=== PATIENT | female | born 1965 | race Caucasian/White ===

== ENCOUNTER 2023-10-15 14:37 | Inpatient (IN) | payer BC, SELFPAY ==
[2023-10-15 11:05] VITALS: BP 170/90
[2023-10-15 11:25] VITALS: BMI 30.5
[2023-10-15] MEDS: TORADOL 30 MG IV ×2 (11:47→17:30)
[2023-10-15] MEDS: TYLENOL 650 MG PO (11:47)
[2023-10-15 11:49] LABS: % Basophils 0.1 % (0-2); % Immature Granulocytes 0.2 % (0-0.5); % Lymphocytes 8.3 % (20.5-51.1); % Neutrophils 77.4 % (42.2-75.2); Absolute Eosinophils 0.4 10^3/uL (0-0.7); Absolute Lymphocytes 0.7 10^3/uL (1.2-3.4); Absolute Monocytes 0.7 10^3/uL (0.1-0.6); Absolute Neutrophils 6.2 10^3/uL (1.4-6.5); Hematocrit 37.7 % (37.0-47.0); Mean Corp Hgb Conc. 37.1 g/dL (33.0-37.0); Mean Corpuscular Hgb 30.4 pg (27.0-31.0); Mean Corpuscular Volume 81.8 fL (81.0-99.0); Mean Platelet Volume 9.2 fL (7.4-10.4); Nucleated Red Blood Cells % 0 %; Platelet Count 176 10^3/uL (130-400); Red Blood Cell Count 4.61 10^6/uL (4.20-5.40); Red Cell Dist. Width 12.5 % (11.5-14.5)
[2023-10-15 12:09] LABS: ALT (SGPT) 27 U/L (0-35); AST (SGOT) 28 U/L (14-36); Albumin 4.7 g/dl (3.5-5.0); Alkaline Phosphatase 62 U/L (38-126); Blood Urea Nitrogen 14 mg/dl (7-17); Carbon Dioxide 27 mmol/L (22-30); Chloride 100 mmol/L (98-107); Estimated Creatinine Clearance 79 ml/min; Glucose 136 mg/dl (70-99); Potassium 4.2 mmol/L (3.5-5.1); Sodium 140 mmol/L (135-145); Total Bilirubin 0.6 mg/dl (0.2-1.3); Total Protein 7.1 g/dl (6.3-8.2); eGFR > 60.00
--- NOTE | 2023-10-15 12:18 | ED.GENMED ---
History of Present Illness
General
Chief Complaint: Skin Problem
Source: patient and spouse
Exam Limitations: none
Time Seen by Provider: 10/15/23 11:20
Nursing documentation reviewed up to this point in time: agreed with
History of Present Illness
History of Present Illness:
58-year-old female diabetic, presents with right elbow pain and swelling, onset a few days ago seen at outside hospital placed on Bactrim and Keflex symptoms have worsened chest pain swelling redness streaking up and down her right arm, also some
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
and pain in her arm
Past History
Past History
ED Past Medical History: NIDDM and Other (Erb palsy)
ED Past Surgical History: Orthopedic
Social History
Tobacco: Non-smoker
Alcohol: None
Drug: None
Personal:
Living: with family
Review of Systems
Review of Systems
Constitutional: Reports fatigue; Denies weight loss
EENT: Reports no symptoms
Respiratory: Reports no symptoms
Cardiac: Reports no symptoms
ABD/GI: Reports no symptoms
Musculoskeletal: Reports joint pain, joint swelling and edema
Neurological: Reports no symptoms
Psychiatric: Reports no symptoms
Phy Exam
Physical Exam
Physical Exam:
Physical Exam
General: no apparent distress, not acutely ill
Neck: No jaundice
Heart: s1/s2 regular rate and rhythm, no murmur. equal radial pulses.
Lungs: no acute respiratory distress. clear bilaterally
Neuro: alert and oriented. no focal neurological deficits
Skin: Few macules over the anterior masterson
Psychiatric: well kept. interactive and cooperative
Extremities: Right upper extremity redness and warmth olecranon bursa with a small pustule decree sensation chronic finding over the right mid forearm strong radial
Course
Orders/Labs/Results
Orders:
Orders
10/15/23 11:32
Elbow, 3 View, Right [CR Elbow - Right Min 3 Views] Urgent
Comment:
Reason For Exam: RIGHT ELBOW PAIN.SWELLING
10/15/23 11:33
Acetaminophen [Tylenol] 650 mg PO NOW STA
Ketorolac [Toradol] 30 mg IV NOW STA
10/15/23 11:36
CRP [C-Reactive Protein] Urgent
Complete Blood Count/With Diff Urgent
Comprehensive Metabolic Panel Urgent
ESR [Erythrocyte Sed Rate] Urgent
Blood Culture Urgent
ANGELIKA Source: Blood/Venous
Specimen Description:
Abnormal Lab Results
10/15/23
11:36
MCHC 37.1 H g/dL
(33.0-37.0)
Absolute Lymphs (auto) 0.7 L 10^3/uL
(1.2-3.4)
Absolute Monos (auto) 0.7 H 10^3/uL
(0.1-0.6)
Neutrophils % 77.4 H %
(42.2-75.2)
Lymphocytes % 8.3 L %
(20.5-51.1)
Glucose 136 H mg/dl
(70-99)
C-Reactive Protein 26.10 H mg/L
(0.0-10.00)
10/15/23 11:36
10/15/23 11:36
Vital Signs
Initial and Last Documented VS:
Initial Vital Signs
Temp Pulse Resp BP Pulse Ox
99.0 F 104 16 170/90 98
10/15/23 11:05 10/15/23 11:05 10/15/23 11:05 10/15/23 11:05 10/15/23 11:05
Last Documented Vital Signs
Temp Pulse Resp BP Pulse Ox
99.0 F 104 16 170/90 98
10/15/23 11:05 10/15/23 11:05 10/15/23 11:05 10/15/23 11:05 10/15/23 11:05
MDM/Problems Addressed
Differential Diagnosis Includes:
Cellulitis abscess olecranon bursitis septic olecranon bursitis call trauma occult foreign body
MDM/Problems Addressed:
Right elbow swelling
Chronic conditions affecting care: DM
Acute Exacerbation and/or Progression of Chronic Illness:
erb
Acute Exacerbation and/or Progression of Chronic Illness: DM
*Critical Care Note
Total Time (30-74mins, 75-104mins- exclusive of procedures): Not Applicable
Update Note
Update Note:
Update patient with persistent symptoms, has been on antibiotics for few days, believe she would benefit from admission, will start on IV antibiotics message sent to hospitalist and orthopedist
ED Attending Note
-
Portions of this chart may have been created with voice recognition software.� Occasional wrong word or��sound alike� substitutions may have occurred due to the inherent limitations of voice recognition software.
Discharge Plan
Departure
Patient Disposition: Admit
Date of Disposition: 10/15/23
Time of Disposition: 12:22
Presentation/result/management discussed w/ accepting MD/DO: Hospitalist
Patient with high blood pressure during this ER visit?: No
Condition: Fair
Discharge Problem:
Olecranon bursitis of right elbow
Referrals:
Chace Velarde DO [Family Provider] -
Interventions
Interventions:
*Risk Screen - Suicide Last Done: 10/15/23 12:06
*General Assessment Last Done: 10/15/23 12:06
*Neglect/Abuse Screening Last Done: 10/15/23 12:06
ED- Fall Risk Assessment Last Done: 10/15/23 12:06
ED-Skin Assessment Last Done: 10/15/23 11:25
Discharge Date and Time
Print Language: FAROESE
[2023-10-15 12:23] VITALS: BP 147/75
[2023-10-15 12:42] LABS: Erythrocyte Sed Rate 14 mm/hour (0-20)
[2023-10-15 13:00] VITALS: BP 157/74
[2023-10-15] MEDS: DILAUDID 1 MG IV (13:08)
[2023-10-15] MEDS: ZOSYN 50 IV (13:32)
--- NOTE | 2023-10-15 13:49 | HPS.HSE ---
Addendum entered and electronically signed by Ger Queen MD 10/15/23 14:47:
58-year-old female with a past medical history of diabetes, Erbs palsy, neuropathy, thyroid cancer, and epilepsy who presents with worsening right elbow erythema, and swelling despite 2 days of outpatient Keflex and Bactrim. Patient has Erb's
palsy, and does not have sensation in her right arm. She also reports diffuse joint pain, swelling, neck pain as well. She has petechiae on her bilateral lower extremities. Her CRP is elevated.
Treat with IV Unasyn, consult orthopedic surgery, consult ID, give pain meds, laxatives.
I have personally seen and examined the patient, and agree with the plan of care as documented by JUSTINO Jaramillo.
Advance care planning discussed, patient is a full code.
All other issues as outlined by the advanced care practitioner.
Total time spent to see the patient on the floor, examine the patient, review data and lab results, discuss treatment plan with patient, nursing staff around 76 minutes.
Original Note:
Family Physician
-
Family Physician: Chace Velarde DO
Chief Complaint
-
Right elbow pain
History of Present Illness
58-year-old female with past medical history for type 2 diabetes, thyroid cancer, epilepsy, neuropathy, iron deficiency anemia presented to us with right elbow pain, swelling, redness for past few days. Patient does have a history for erb palsy.
She denies lesion on her right arm frequently. Stated right elbow wound/callus for quite some time. But noted worsening redness and swelling and pain for past few days. Patient was started on Bactrim and Keflex. She took total doses of 4. She
noticed some rash generalized on her extremities since she was on antibiotics. Patient also complaining of generalized joint pain. Patient not able to bend her fingers due to the swelling. Patient also stated joint swelling and pain. Patient
complained of headache, lightheadedness. Patient also stated some chest pain. Denied abdominal pain, nausea, vomiting, diarrhea. Patient denied dysuria hematuria.
X-ray of right elbow with cellulitis. Initiated IV antibiotics. Admitting for further management
Medical History
Past Medical History
Past Medical History: Reports Other
Additional Past Medical History:
Hypothyroidism
Erbs palsy
Neuropathy
Type 2 diabetes
Thyroid cancer
Past Surgical History: Reports Other
Additional Past Surgical History:
Thyroidectomy
Nerve surgery
Social History
Tobacco: Former Smoker
Alcohol: Occasional
Drug: None
Personal:
Living: With Family
Family History
Family History: Not pertinent
Allergies / Home Medications
Allergies reflects when Allergies were last updated in [employer].
Home Medications with original date entered in [employer]
Allergy/Medication List:
Allergies
Allergy/AdvReac Type Severity Reaction Status Date / Time
semaglutide Allergy Hives Verified 10/15/23 11:08
Home Medications
Lactobac no.2-Bifidobac no.1-S. thermo 112.5 billion cell capsule (Visbiome) 1 cap PO DAILY 10/15/23
ascorbic acid (vitamin C) 500 mg tablet (Vitamin C) 500 mg PO DAILY 10/15/23
biotin 5 mg tablet 5 mg PO DAILY 10/15/23
bupropion HCl 150 mg tablet,12 hr sustained-release 150 mg PO BID 10/15/23
calcium carbonate (Calcium 600) 600 mg PO DAILY 10/15/23
cephalexin 500 mg capsule 500 mg PO QID 10/15/23
cinnamon bark 500 mg capsule (Cinnamon) 500 mg PO DAILY 10/15/23
cranberry fruit 450 mg tablet (cranberry) 450 mg PO DAILY 10/15/23
cyanocobalamin (vitamin B-12) 1,000 mcg tablet 1,000 mcg PO DAILY 10/15/23
dapagliflozin propanediol 5 mg tablet (Farxiga) 5 mg PO DAILY 10/15/23
ferrous sulfate 325 mg (65 mg iron) tablet 325 mg PO Q48H 10/15/23
ibuprofen 200 mg tablet 400 mg PO Q6HPRN PRN mild pain 10/15/23
icosapent ethyl 1 gram capsule 1 g PO BID 10/15/23
levothyroxine 137 mcg tablet (Synthroid) 137 mcg PO DAILY 10/15/23
liothyronine 5 mcg tablet 5 mcg PO DAILY 10/15/23
magnesium oxide 400 mg (241.3 mg magnesium) tablet 400 mg PO DAILY 10/15/23
metformin 1,000 mg tablet 1,000 mg PO BID 10/15/23
sulfamethoxazole 800 mg-trimethoprim 160 mg tablet (Bactrim DS) 1 tab PO BID 10/15/23
therapeutic multivitamin 1 tab PO DAILY 10/15/23
tretinoin 0.05 % topical gel 1 applic topical HS face 10/15/23
turmeric 400 mg capsule 400 mg PO DAILY 10/15/23
vitamin B complex 1 tab PO DAILY 10/15/23
zinc sulfate 50 mg zinc (220 mg) tablet 50 mg PO DAILY 10/15/23
Review of Systems
-
Constitutional: Reports No Symptoms
EENT: Reports No Symptoms
Respiratory: Reports No Symptoms
Cardiac: Reports Chest Pain
Abdomen/GI: Reports No Symptoms
: Reports No Symptoms
Musculoskeletal: Reports No Symptoms
Skin: Reports Rash and Other (Right elbow swelling, redness)
Neurological: Reports Headache and Weakness
Endocrine: Reports No Symptoms
Hematologic/Lymphatic: Reports No Symptoms
Psych: Reports No Symptoms
Physical Exam
Vital Signs
Vital Signs
Temp Pulse Resp BP Pulse Ox
99.0 F 104 16 170/90 98
10/15/23 11:05 10/15/23 11:05 10/15/23 11:05 10/15/23 11:05 10/15/23 11:05
Physical Exam
General: Well Developed, Well Nourished and No Apparent Distress
HEENT: NormoCephalic, Moist mucous membranes and Atraumatic
Respiratory: Clear
Cardiac: S1/S2 and Regular Rhythm; No Murmur or Rub
GI: Soft, Non Tender, Non Distended and Normal Bowel Sounds; No Organomegaly
Rectal: Deferred by Provider
Musculoskeletal: No Clubbing, No Cyanosis and No Edema
Skin: Rash and Other (Bilateral lower extremities rash, right elbow redness swelling)
Neuro: AO x 3 and Nonfocal/grossly intact
Psych: Calm
Laboratory Results
-
10/15/23 11:36
10/15/23 11:36
Laboratory Results
Total Bilirubin 0.6 mg/dl (0.2-1.3) 10/15/23 11:36
AST 28 U/L (14-36) 10/15/23 11:36
ALT 27 U/L (0-35) 10/15/23 11:36
Alkaline Phosphatase 62 U/L (38-126) 10/15/23 11:36
Data Reviewed
-
Diagnostic Radiology: Report Reviewed by me
Lab Data: Labs Reviewed by me
Impression/Plan
-
# Cellulitis/olecranon bursitis
-Failed outpatient antibiotic therapy
-CRP 26.10, ESR 14
-X-ray of elbow with impression of Severe diffuse soft tissue swelling and subcutaneous edema suggesting SEVERE CELLULITIS.No radiographic evidence for acute osteomyelitis or septic arthritis.
-Blood culture sent from ER
-Received IV Zosyn and Vanco in ER
-IV Unasyn continued
-oxy as needed for pain
-Orthopedic consult
#Chest pain/generalized joint pain/joint swelling
-CTM
-Obtain Trope
-May need rheumatology follow-up as outpatient
# Generalized rash likely from antibiotics
-Continue to monitor
# Anxiety/depression
-Bupropion continued
# Type 2 diabetes
-farxiga, metformin continued
-Sliding scale
-Carb controlled diet
# iron deficiency anemia
-Ferrous sulfate continued
# History of thyroid cancer/hypothyroidism
-Levothyroxine, liothyronine continued
# DVT prophylaxis
-Lovenox subcu
# CODE STATUS
-Full code
[2023-10-15] MEDS: VANCOCIN 200 IV (14:40)
[2023-10-15 15:13] LABS: Troponin I < 0.012 ng/ml
[2023-10-15 15:45] VITALS: BMI 29.7
[2023-10-15 15:46] VITALS: BP 130/73
--- NOTE | 2023-10-15 16:20 | CON.ID ---
Consultation
-
Date/Time Consultation Requested: October 15, 2023 1437
Date/Time Consultation Performed: October 15, 2023 1620
Requesting Provider: Dr. Dory SLADE
Performing Provider: Dr. Rere Dean
Reason for Consultation: Elbow cellulitis
Chief Complaint / Past History
Chief Complaint
Right elbow swelling, redness. Hives. Left arm pain and numbness.
History of Present Illness
58-year-old female with diabetes mellitus, Erbs palsy with minimal use of her right upper extremity who develop right elbow swelling and redness few days ago. It was warm. She went to [facility] ED on October 12. She was discharged on
cephalexin and Bactrim. Tuesday she noted left arm swelling, severe left hand pain with numbness and tingling, swelling of the lower extremities, bilateral ankle pains with spots on her legs. Positive subjective fever. No injury to right elbow.
Past History
Additional Past Medical History:
Hypothyroidism
Diabetes mellitus
Erbs palsy with loss of muscle and sensory function RUE
Neuropathy
Thyroid cancer status postresection
Epilepsy
Allergy History:
semaglutide Allergy (Verified 10/15/23 11:08)
Hives
Medications Reviewed: Yes
Current Antibiotics:
Unasyn day 1
Social History
Tobacco: Non-Smoker
Alcohol: None
Drug: None
Family History
Family History: Not Pertinent
Review of Systems
Review of Systems
General: Fever and Chills
HEENT: Negative Stiff Neck, Headache or Pharyngitis
Cardiovascular: Negative Chest Pain or Dyspnea
Respiratory: Negative Dyspnea or Cough
Gasteroenterology: Other (no diarrhea); Negative Nausea or Vomiting
Musculoskeletal: Negative Joint Pain or Joint Swelling
Neurological: Negative Headache or Dizziness
All systems: All other systems were reviewed and were negative
Vital Signs
Temp Pulse Resp BP Pulse Ox
98.0 F 93 16 130/73 96
10/15/23 15:46 10/15/23 15:46 10/15/23 15:46 10/15/23 15:46 10/15/23 15:46
Physical Exam
Physical Exam
Constitutional: No Acute Distress
Cardiovascular: Regular Rate and S1/S2
Pulmonary: Clear
Gastrointestinal: Soft, Non Tender, Non Distended and Normal Bowel Sounds
Genito-Urinary: Negative CVA Tenderness
Extremities: Edema (BLE, LUE)
Musculoskeletal: Other (Right olecranon + bright erythema, no purulent drainage, + edema)
Skin: Rash (Few scattered macules bilateral calf thigh)
Neurological: AO x 3
Lab / Diagnostic Study Results
10/15/23 11:36
10/15/23 11:36
Abs Immat Gran (auto) 0.0 10^3/uL (0-0.05) 10/15/23 11:36
Absolute Neuts (auto) 6.2 10^3/uL (1.4-6.5) 10/15/23 11:36
Absolute Lymphs (auto) 0.7 10^3/uL (1.2-3.4) L 10/15/23 11:36
Absolute Monos (auto) 0.7 10^3/uL (0.1-0.6) H 10/15/23 11:36
Absolute Basos (auto) 0.0 10^3/uL (0-0.2) 10/15/23 11:36
Immature Gran % 0.2 % (0-0.5) 10/15/23 11:36
Neutrophils % 77.4 % (42.2-75.2) H 10/15/23 11:36
Lymphocytes % 8.3 % (20.5-51.1) L 10/15/23 11:36
Monocytes % 9.0 % (1.7-9.3) 10/15/23 11:36
Eosinophils % 5.0 % (0-6) 10/15/23 11:36
Basophils % 0.1 % (0-2) 10/15/23 11:36
ESR 14 mm/hour (0-20) 10/15/23 11:36
C-Reactive Protein 26.10 mg/L (0.0-10.00) H 10/15/23 11:36
Microbiology Results
Micro:
10/15/23 11:36 Blood Culture - Pending
Blood/Venous
10/15/23 Right elbow: Severe diffuse soft tissue swelling and subcutaneous edema suggesting SEVERE CELLULITIS. No radiographic evidence for acute osteomyelitis or septic arthritis.
Assessment / Plan
# Acute right elbow cellulitis
# ERB' palsy loss of muscle function RUE
- Appreciate ortho - attempted to aspirate lesion with bloody output only.
- Change Unasyn to cefazolin.
- Follow clinically for improvement.
# Suspect drug reaction/ serum-sickness due to outpt Bactrim vs from Strep infection
- polyarthralgias, edema of limbs, rash
- Avoid Bactrim for now.
Care Review
Plan reviewed with: Physician (Dr. Russo)
--- NOTE | 2023-10-15 16:42 | W.PN.UPDATE ---
Update Note
Progress Note Update
Full consult dictated. 58 yo female admitted to for cellulitis of right upper extremity. History of Erbs palsy RUE with decreased function and ROM of her RUE. She reports a callous on her elbow from resting it on hard surfaces without having
sensation about the olecranon. No recent trauma. She went to [place] at [facility] and was given Augmentin on . She reports left finger swelling and lower extremity swelling. She denies fevers at home. Evaluation of the right elbow
reveals erythema about the olecranon region and a small blister next to the callous. Some streaking erythema into the forearm. ROM of the elbow normal for her with her Erb's palsy. Swelling noted about the her left fingers. AVSS. WBC normal and
CRP elevated. Radiographs with soft tissue swelling and no bony abnormalities. Impression: Cellulitis RUE. Plan: The blister was unroofed and only blood came from the blister. Sterile dressing applied. Nothing to culture. Will observe. On
unasyn. Have made her NPO after MN in case bursa worsens. Will reevaluate tomorrow AM. ESR ordered. May consider rheumatology consult if multiple joints involved but RUE definitely cellulitic while other joints may be from another process.
[2023-10-15] MEDS: GLUCOPHAGE 1000 MG PO (17:21)
[2023-10-15] MEDS: NOVOLOG FLEXPEN-LOW RESISTANCE SC (17:25)
[2023-10-15 18:47] LABS: Glucose - Point of Care 157 mg/dl (70-99)
[2023-10-15 19:00] VITALS: BP 130/69
[2023-10-15] MEDS: SENOKOT-S PO (20:12)
[2023-10-15 21:24] LABS: Glucose - Point of Care 105 mg/dl (70-99)
[2023-10-15] MEDS: WELLBUTRIN SR (12 hour sustained release) 150 MG PO (22:06)
[2023-10-15] MEDS: ROXICODONE 10 MG PO (22:06)
[2023-10-15] MEDS: ANCEF 10 IV (22:07)
[2023-10-15 23:00] VITALS: BP 145/73
[2023-10-15] MEDS: MOTRIN 400 MG PO (23:22)
[2023-10-16 03:00] VITALS: BP 111/72
[2023-10-16] MEDS: ANCEF 10 IV ×3 (06:30→21:17)
[2023-10-16 07:12] LABS: Glucose - Point of Care 127 mg/dl (70-99)
--- NOTE | 2023-10-16 07:18 | W.PN.HOSP.TC ---
Addendum entered and electronically signed by Ger Queen MD 10/16/23 14:20:
Discussed with ID and rheumatology, who suspects serum sickness reaction from Bactrim.
Cancel RADHA, RF, lupus panel.
Rheumatology recommends x-rays of bilateral ankles, checking parvovirus antibodies, uric acid, hep C antibody.
Original Note:
Today's Communication/Plan
-
see bold
Assessment / Plan
Assessment / Plan
HPI: 58-year-old female with a past medical history of diabetes, Erbs palsy, neuropathy, thyroid cancer, and epilepsy who presents with worsening right elbow erythema, and swelling despite 2 days of outpatient Keflex and Bactrim. Patient has Erb's
palsy, and does not have sensation in her right arm. She also reports diffuse joint pain, swelling, neck pain as well. She has petechiae on her bilateral lower extremities. Her CRP is elevated.
#Right elbow cellulitis with possible olecranon bursitis
Appreciate orthopedic surgery input, only blood was drained from patient's elbow, nothing to culture
Appreciate ID input, continue IV Ancef
#Diffuse arthralgias
Patient complains of neck pain, diffuse joint pain and swelling making it difficult for her to ambulate
ESR normal, CRP elevated
Check RADHA, RF, lupus panel
Okayed by ID to start trial of IV steroids
C/s rheumatology
#Rash
Appreciate ID input, possibly due to Bactrim
Maintain off Bactrim, continue supportive care
#Type 2 diabetes
Continue metformin, Farxiga, carb controlled diet, sliding scale
#Anxiety/depression
Continue bupropion
#Iron deficiency anemia
Continue ferrous sulfate
#History of thyroid cancer
#Hypothyroidism
Continue levothyroxine, liothyronine
DVT prophylaxis�subcu Lovenox
Full code
Total time spent to see the patient on the floor, examine the patient, review data and lab results, discuss treatment plan with patient, nursing staff around 55 minutes.
Physical Exam
General: No acute distress
HEENT: Normocephalic, Atraumatic, EOMI, MMM
Respiratory: Clear to Auscultation bilaterally
Cardiac: Normal S1/S2, Regular Rate and Rhythm
GI: Soft, Nontender, Nondistended, Normal Bowel Sounds
Musculoskeletal: Right elbow with erythema, edema
Multiple joints are tender to palpation and swollen
Neuro: Nonfocal/Grossly Intact
Psych: Calm, Cooperative
Derm: No Visible lesions
Anticipated Discharge: > 48 hours
Subjective/Interval History
-
Date of Service: October 16, 2023
Patient continues to report report diffuse joint pain, joint swelling. She states it is difficult for her to ambulate. No fever, no vomiting.
Objective Data
-
Labs:
Laboratory Results
10/16/23
06:50
WBC Pending
Hgb Pending
Hct Pending
Plt Count Pending
Sodium Pending
Potassium Pending
Chloride Pending
Carbon Dioxide Pending
BUN Pending
Creatinine Pending
Glucose Pending
Calcium Pending
Vital Signs:
Vital Signs
Temp Pulse Resp BP Pulse Ox
98.3 F 86 14 111/72 95
10/16/23 03:00 10/16/23 03:00 10/16/23 03:00 10/16/23 03:00 10/16/23 03:00
I&O
10/15/23 10/16/23 10/17/23
06:59 06:59 06:59
Intake Total 960 / 960
Balance 960 / 960
[2023-10-16] MEDS: NOVOLOG FLEXPEN-LOW RESISTANCE SC ×2 (07:25→12:16)
[2023-10-16 07:30] LABS: Hematocrit 36.1 % (37.0-47.0); Hemoglobin 13.1 g/dL (12.0-16.0); Mean Corp Hgb Conc. 36.3 g/dL (33.0-37.0); Mean Corpuscular Volume 82.8 fL (81.0-99.0); Platelet Count 163 10^3/uL (130-400); Red Blood Cell Count 4.36 10^6/uL (4.20-5.40); Red Cell Dist. Width 12.6 % (11.5-14.5); White Blood Cell Count 6.7 10^3/uL (4.8-10.8)
--- NOTE | 2023-10-16 07:41 | W.PN.UPDATE ---
Update Note
Progress Note Update
Patient seen and examined. AVSS. RUE: Erythema about the right forearm is decreased. No drainage about the elbow. Erythema unchanged at elbow. Left fingers with decreased swelling. WBC 6 this AM. Recommend continuation of IV antibiotics.
Will make NPO for tomorrow morning in case elbow symptoms worsen. Will follow.
[2023-10-16 07:56] LABS: Blood Urea Nitrogen 11 mg/dl (7-17); Calcium 9.5 mg/dl (8.4-10.2); Carbon Dioxide 28 mmol/L (22-30); Chloride 100 mmol/L (98-107); Estimated Creatinine Clearance 78 ml/min; Glucose 116 mg/dl (70-99); Potassium 4.2 mmol/L (3.5-5.1); Sodium 140 mmol/L (135-145); eGFR > 60.00
[2023-10-16] MEDS: CYTOMEL 5 MICROGRAM PO (07:58)
[2023-10-16] MEDS: SENOKOT-S 2 TABLET PO (07:58)
[2023-10-16] MEDS: GLUCOPHAGE 1000 MG PO ×2 (07:59→17:10)
[2023-10-16] MEDS: FEOSOL 325 MG PO (07:59)
[2023-10-16] MEDS: FARXIGA 5 MG PO (07:59)
[2023-10-16] MEDS: WELLBUTRIN SR (12 hour sustained release) 150 MG PO ×2 (07:59→21:17)
[2023-10-16] MEDS: THERAGRAN 1 TABLET PO (08:00)
[2023-10-16] MEDS: SYNTHROID 137 MCG PO (08:05)
[2023-10-16 08:10] VITALS: BP 131/63
[2023-10-16] MEDS: MOTRIN 600 MG PO ×3 (09:02→21:16)
--- NOTE | 2023-10-16 11:34 | W.PN.ID1 ---
Date of Service
Date of Service: October 16, 2023
Today's Communication
Continue cefazolin.
No objections to starting steroid for joint pains.
Assessment / Plan
# Acute right elbow cellulitis slightly improved
# ERB' palsy loss of muscle function RUE
- Appreciate ortho - attempted to aspirate lesion with bloody output only.
- Continue cefazolin (d2)
- Follow clinically for improvement.
# Suspect drug reaction/ serum-sickness due to outpt Bactrim vs from Strep infection
- migratory polyarthralgias, edema of limbs, rash
- No objections to starting steroid.
Additional Past Medical History:
Hypothyroidism
Diabetes mellitus
Erbs palsy with loss of muscle and sensory function RUE
Neuropathy
Thyroid cancer status postresection
Epilepsy
Chief Complaint
-: Cellulitis
Subjective / Review of Systems
Right elbow better.
Left hand pain/stiffness improve.
c/o worsening bilateral ankle pain/edema.
Vital Signs / Physical Exam
Vital Signs
Vital Signs
Temp Pulse Resp BP Pulse Ox
98.3 F 89 16 131/63 94
10/16/23 08:10 10/16/23 08:10 10/16/23 08:10 10/16/23 08:10 10/16/23 08:10
Physical Exam
Constitutional: No Acute Distress
Cardiovascular: Regular Rate
Pulmonary: Clear
Gastrointestinal: Soft, Non Tender and Non Distended
Extremities: Edema (BLE 2+, LUE edema improved)
Musculoskeletal: Other (right elbow wound dried blood, surrounding erythema slightly receding from marked line, decreased edema)
Neurological: AO x 3
Objective Data
Lab Data
Lab Results
10/16/23 06:50
10/16/23 06:50
ESR 14 mm/hour (0-20) 10/15/23 11:36
Estimated Creat Clear 78 ml/min 10/16/23 06:50
Total Bilirubin 0.6 mg/dl (0.2-1.3) 10/15/23 11:36
AST 28 U/L (14-36) 10/15/23 11:36
ALT 27 U/L (0-35) 10/15/23 11:36
Alkaline Phosphatase 62 U/L (38-126) 10/15/23 11:36
C-Reactive Protein 26.10 mg/L (0.0-10.00) H 10/15/23 11:36
Most recent labs reviewed.
Micro Results:
10/15/23 11:36 Blood Culture - Pending
Blood/Venous
10/15/23 Right elbow: Severe diffuse soft tissue swelling and subcutaneous edema suggesting SEVERE CELLULITIS. No radiographic evidence for acute osteomyelitis or septic arthritis.
Care Review
Plan reviewed with: Physician (Dr. Kim Queen)
[2023-10-16 11:44] VITALS: BP 140/92
[2023-10-16 12:11] LABS: Glucose - Point of Care 121 mg/dl (70-99)
[2023-10-16] MEDS: DECADRON 4 MG IV ×2 (12:21→21:17)
[2023-10-16 13:11] LABS: Glycohemoglobin (HgbA1c) 5.7 % (4.0-5.6)
[2023-10-16 15:05] VITALS: BP 141/68
[2023-10-16 15:49] LABS: Urine Albumin Negative (Neg - Trace); Urine Bilirubin Negative (Negative); Urine Character Clear (Clear); Urine Color Yellow; Urine Glucose 3+ (Negative); Urine Ketone Negative (Negative); Urine Leukocyte 2+ (Negative); Urine Nitrite Negative (Negative); Urine Occult Blood Negative (Negative); Urine Urobilinogen Negative (Neg - 1+)
--- NOTE | 2023-10-16 15:56 | CM ---
Alert awake oriented patient who lives with her Kenny in a 2 story home with 0 steps to enter and 12 steps to bed/bathroom. She is independent in driving and all activates of daily living.Offered Vn she declined need.
Had VN in past . No SNF hx
Ph[facility]
PCP Dr Velarde
PLAN Home with no anticipated needs
[2023-10-16 16:04] LABS: Urine Squamous Cell >30 /LPF (Few)
[2023-10-16 16:05] LABS: Urine Bacteria Few (Negative); Urine Red Blood Cell 0-2 /HPF (0-2)
[2023-10-16 17:07] LABS: Glucose - Point of Care 219 mg/dl (70-99)
[2023-10-16] MEDS: NOVOLOG FLEXPEN-LOW RESISTANCE 2 UNITS SC (17:44)
[2023-10-16 19:10] VITALS: BP 160/76
[2023-10-16 21:08] LABS: Glucose - Point of Care 131 mg/dl (70-99)
[2023-10-16] MEDS: SENOKOT-S PO (21:14)
[2023-10-16 23:42] VITALS: BP 157/83
[2023-10-17 03:34] VITALS: BP 120/76
[2023-10-17 05:07] LABS: Glucose - Point of Care 150 mg/dl (70-99)
[2023-10-17] MEDS: NOVOLOG FLEXPEN-LOW RESISTANCE 1 UNITS SC (05:07)
[2023-10-17] MEDS: ANCEF 10 IV ×3 (05:08→21:26)
[2023-10-17] MEDS: DECADRON 4 MG IV ×3 (05:08→20:56)
[2023-10-17] MEDS: SYNTHROID 68.5 MCG PO (05:08)
[2023-10-17 06:43] LABS: Hematocrit 38.6 % (37.0-47.0); Mean Corp Hgb Conc. 36.3 g/dL (33.0-37.0); Mean Corpuscular Volume 85.4 fL (81.0-99.0); Mean Platelet Volume 9.1 fL (7.4-10.4); Platelet Count 208 10^3/uL (130-400); Red Blood Cell Count 4.52 10^6/uL (4.20-5.40); Red Cell Dist. Width 12.1 % (11.5-14.5); White Blood Cell Count 10.1 10^3/uL (4.8-10.8)
[2023-10-17 07:00] VITALS: BP 136/75
[2023-10-17] MEDS: MOTRIN 600 MG PO ×2 (07:07→20:59)
[2023-10-17 07:10] LABS: Blood Urea Nitrogen 14 mg/dl (7-17); Calcium 10.2 mg/dl (8.4-10.2); Carbon Dioxide 30 mmol/L (22-30); Chloride 98 mmol/L (98-107); Estimated Creatinine Clearance 89 ml/min; Glucose 139 mg/dl (70-99); Potassium 4.5 mmol/L (3.5-5.1); Sodium 141 mmol/L (135-145); eGFR > 60.00
--- NOTE | 2023-10-17 08:04 | W.PN.UPDATE ---
Update Note
Progress Note Update
Patient seen and examined. AVSS. Feeling better. Swelling in right forearm imporved without erythema. Erythema about the right elbow much improved with decreased swelling about the olecranon. Swelling in fingers on left significantly improved.
Possible rash on left hand. Blood cultures negative. Surgery cancelled. Continue antibiotics per ID. Please call if symptoms do not continue to improve.
[2023-10-17] MEDS: CYTOMEL 5 MICROGRAM PO (08:07)
[2023-10-17] MEDS: THERAGRAN 1 TABLET PO (08:10)
[2023-10-17] MEDS: WELLBUTRIN SR (12 hour sustained release) 150 MG PO ×2 (08:10→20:59)
[2023-10-17] MEDS: GLUCOPHAGE 1000 MG PO ×2 (08:10→17:02)
[2023-10-17] MEDS: FARXIGA 5 MG PO (08:10)
[2023-10-17] MEDS: SENOKOT-S PO ×2 (08:11→20:56)
--- NOTE | 2023-10-17 09:25 | W.PN.HOSP.TC ---
Today's Communication/Plan
-
IV Cefazolin
IV Decadron
appreciate consultants
Assessment / Plan
Assessment / Plan
HPI: 58-year-old female with a past medical history of diabetes, Erbs palsy, neuropathy, thyroid cancer, and epilepsy who presents with worsening right elbow erythema, and swelling despite 2 days of outpatient Keflex and Bactrim. Patient has Erb's
palsy, and does not have sensation in her right arm. She also reports diffuse joint pain, swelling, neck pain as well. She has petechiae on her bilateral lower extremities. Her CRP is elevated.
#Right elbow cellulitis with possible olecranon bursitis
Appreciate orthopedic surgery input, only blood was drained from patient's elbow, nothing to culture
Appreciate ID input, continue IV Ancef
-Bactrim stopped and on allergy list
#Diffuse arthralgias and rash - concern for serum sickness -like reaction from Bactrim
Patient complains of neck pain, diffuse joint pain and swelling making it difficult for her to ambulate - now improved
ESR normal, CRP elevated
-appreciate ID and Rheumatology consult
-Bactrim stopped and now on allergy list
-IV Decadron - transition to prednisone tomorrow
-F/U Parvovirus antibiotics; HCV Ab;
-left ankle X-Ray WNL; right ankle X-Ray without acute findings; Mild degenerative spurring at the dorsal margin of the talonavicular joint
#Type 2 diabetes
Continue metformin, Farxiga, carb controlled diet, sliding scale
#Anxiety/depression
Continue bupropion
#Iron deficiency anemia
Continue ferrous sulfate
#History of thyroid cancer
#Hypothyroidism
Continue levothyroxine, liothyronine
DVT prophylaxis�subcu Lovenox
Full code
Total time spent to see the patient on the floor, examine the patient, review data and lab results, discuss treatment plan with patient, nursing staff around 55 minutes.
Physical Exam
General: No acute distress
HEENT: Normocephalic, Atraumatic, EOMI, MMM
Respiratory: Clear to Auscultation bilaterally
Cardiac: Normal S1/S2, Regular Rate and Rhythm
GI: Soft, Nontender, Nondistended, Normal Bowel Sounds
Musculoskeletal: Right elbow with erythema, edema
Multiple joints are tender to palpation and swollen
Neuro: Nonfocal/Grossly Intact
Psych: Calm, Cooperative
Derm: No Visible lesions
Anticipated Discharge: 24 - 48 hours
Subjective/Interval History
-
Date of Service: October 17, 2023
overall feeling better
erythema of elbow much improved
no fevers/chills
joint pain improving
rash improving
new spot left palm
Objective Data
-
Labs:
Laboratory Results
10/17/23
05:58
WBC 10.1
Hgb 14.0
Hct 38.6
Plt Count 208 D
Sodium 141
Potassium 4.5
Chloride 98
Carbon Dioxide 30
BUN 14
Creatinine 0.7
Glucose 139 H
Calcium 10.2
Vital Signs:
Vital Signs
Temp Pulse Resp BP Pulse Ox
97.9 F 82 18 136/75 96
10/17/23 07:00 10/17/23 07:00 10/17/23 07:00 10/17/23 07:00 10/17/23 07:00
I&O
10/16/23 10/17/23 10/18/23
06:59 06:59 06:59
Intake Total 960 / 960 980 / 980
Balance 960 / 960 980 / 980
Review of Systems
-
History Source: Patient
All other systems: Reviewed and negative
Data Reviewed
-
Diagnostic Radiology: Report Reviewed by me
Labs: Labs Reviewed by me
[2023-10-17 09:35] LABS: Erythrocyte Sed Rate 13 mm/hour (0-20)
[2023-10-17 11:00] VITALS: BP 138/69
[2023-10-17 11:48] LABS: Glucose - Point of Care 175 mg/dl (70-99)
[2023-10-17] MEDS: NOVOLOG FLEXPEN-LOW RESISTANCE SC (12:58)
[2023-10-17 12:59] LABS: Glucose - Point of Care 123 mg/dl (70-99)
[2023-10-17 14:11] LABS: Rheumatoid Agglutinin Less Than 10 IU (<10 IU)
--- NOTE | 2023-10-17 14:40 | W.PN.ID1 ---
Date of Service
Date of Service: October 17, 2023
Today's Communication
- Tomorrow, can transition to cephalexin 500mg po qid through 10/24/23.
Assessment / Plan
# Acute right elbow cellulitis improving
# ERB' palsy loss of muscle function RUE
- Appreciate ortho - attempted to aspirate lesion with bloody output only.
- Continue cefazolin (d3)
- Tomorrow, can transition to cephalexin 500mg po qid through 10/24/23.
# Suspect drug reaction/ serum-sickness due to outpt Bactrim vs ?from Strep infection
- migratory polyarthralgias, edema of limbs, rash
- Improving on steroid.
Additional Past Medical History:
Hypothyroidism
Diabetes mellitus
Erbs palsy with loss of muscle and sensory function RUE
Neuropathy
Thyroid cancer status postresection
Epilepsy
Chief Complaint
-: Cellulitis
Subjective / Review of Systems
Inflammation improving with steroid.
Right elbow less red.
Vital Signs / Physical Exam
Vital Signs
Vital Signs
Temp Pulse Resp BP Pulse Ox
98.2 F 86 18 138/69 98
10/17/23 11:00 10/17/23 11:00 10/17/23 11:00 10/17/23 11:10/17/23 11:00
Physical Exam
Constitutional: No Acute Distress and Comfortable
Cardiovascular: Regular Rate and S1/S2
Pulmonary: Clear
Gastrointestinal: Soft, Non Tender and Non Distended
Extremities: Edema (decreased BLE/LUE)
Musculoskeletal: Other (Right elbow - decreased edema and erythema)
Skin: Rash (pink patch on left palm)
Neurological: AO x 3
Objective Data
Lab Data
Lab Results
10/17/23 05:58
10/17/23 05:58
ESR 13 mm/hour (0-20) 10/17/23 05:58
Estimated Creat Clear 89 ml/min 10/17/23 05:58
Total Bilirubin 0.6 mg/dl (0.2-1.3) 10/15/23 11:36
AST 28 U/L (14-36) 10/15/23 11:36
ALT 27 U/L (0-35) 10/15/23 11:36
Alkaline Phosphatase 62 U/L (38-126) 10/15/23 11:36
C-Reactive Protein 25.90 mg/L (0.0-10.00) H 10/17/23 05:58
Most recent labs reviewed.
Micro Results:
10/15/23 11:36 Blood Culture - Preliminary
Blood/Venous No Growth in 48 hours- Final report to follow
10/15/23 Right elbow: Severe diffuse soft tissue swelling and subcutaneous edema suggesting SEVERE CELLULITIS. No radiographic evidence for acute osteomyelitis or septic arthritis.
[2023-10-17 15:00] VITALS: BP 135/86
[2023-10-17 16:57] LABS: Glucose - Point of Care 205 mg/dl (70-99)
[2023-10-17] MEDS: NOVOLOG FLEXPEN-LOW RESISTANCE 2 UNITS SC (18:37)
[2023-10-17 19:00] VITALS: BP 163/70
[2023-10-17 20:32] LABS: Hepatitis C Antibody Negative (Negative)
[2023-10-17 21:57] LABS: Glucose - Point of Care 157 mg/dl (70-99)
[2023-10-17 23:00] VITALS: BP 128/62
[2023-10-18 03:00] VITALS: BP 122/84
[2023-10-18] MEDS: SYNTHROID 137 MCG PO (04:26)
[2023-10-18] MEDS: CYTOMEL 5 MICROGRAM PO (04:26)
[2023-10-18] MEDS: ANCEF 10 IV (06:32)
[2023-10-18 07:19] LABS: Glucose - Point of Care 142 mg/dl (70-99)
[2023-10-18 07:30] VITALS: BP 148/67
[2023-10-18] MEDS: NOVOLOG FLEXPEN-LOW RESISTANCE SC (08:05)
[2023-10-18] MEDS: FARXIGA 5 MG PO (08:10)
[2023-10-18] MEDS: WELLBUTRIN SR (12 hour sustained release) 150 MG PO (08:10)
[2023-10-18] MEDS: DELTASONE 60 MG PO (08:11)
[2023-10-18] MEDS: GLUCOPHAGE 1000 MG PO (08:11)
[2023-10-18] MEDS: FEOSOL 325 MG PO (08:11)
[2023-10-18] MEDS: SENOKOT-S PO (08:12)
[2023-10-18] MEDS: THERAGRAN 1 TABLET PO (08:12)
[2023-10-18] MEDS: ROXICODONE 10 MG PO (08:20)
--- NOTE | 2023-10-18 10:01 | CM ---
Reviewed chart, patient appears to be at baseline level of functioning. Should have no needs at discharge.
Plan: Case management will continue to follow and assist with discharge planning. Home no needs.
--- NOTE | 2023-10-18 10:07 | W.PN.HOSP.TC ---
Today's Communication/Plan
-
OK for DC today
Assessment / Plan
Assessment / Plan
HPI: 58-year-old female with a past medical history of diabetes, Erbs palsy, neuropathy, thyroid cancer, and epilepsy who presents with worsening right elbow erythema, and swelling despite 2 days of outpatient Keflex and Bactrim. Patient has Erb's
palsy, and does not have sensation in her right arm. She also reports diffuse joint pain, swelling, neck pain as well. She has petechiae on her bilateral lower extremities. Her CRP is elevated.
#Right elbow cellulitis with possible olecranon bursitis
Appreciate orthopedic surgery input, only blood was drained from patient's elbow, nothing to culture, no need for intervention - improving on antibiotics
Appreciate ID input, s/p IV Ancef - continue oral Keflex through 10/24/23
-Bactrim stopped and on allergy list (see below)
#Diffuse arthralgias and rash - concern for serum sickness -like reaction from Bactrim
Patient complains of neck pain, diffuse joint pain and swelling making it difficult for her to ambulate - now improved
ESR normal, CRP elevated
-appreciate ID and Rheumatology consult
-Bactrim stopped and now on allergy list
-s/p 2 days IV Decadron - transitioned to prednisone and will taper over week, discussed plan with Dr. Campbell
-F/U Parvovirus antibiotics; HCV Ab negative;
-left ankle X-Ray WNL; right ankle X-Ray without acute findings; Mild degenerative spurring at the dorsal margin of the talonavicular joint
#Type 2 diabetes
Continue metformin, Farxiga, carb controlled diet, sliding scale
#Anxiety/depression
Continue bupropion
#Iron deficiency anemia
Continue ferrous sulfate
#History of thyroid cancer
#Hypothyroidism
Continue levothyroxine, liothyronine
DVT prophylaxis�subcu Lovenox
Full code
Total time spent to see the patient on the floor, examine the patient, review data and lab results, discuss treatment plan with patient, nursing staff around 55 minutes.
Physical Exam
General: No acute distress
HEENT: Normocephalic, Atraumatic, EOMI, MMM
Respiratory: Clear to Auscultation bilaterally
Cardiac: Normal S1/S2, Regular Rate and Rhythm
GI: Soft, Nontender, Nondistended, Normal Bowel Sounds
Musculoskeletal: Right elbow with erythema, edema - receding, improving
swelling of joints resolving
Neuro: Nonfocal/Grossly Intact
Psych: Calm, Cooperative
Derm: No Visible lesions
Anticipated Discharge: Today
Subjective/Interval History
-
Date of Service: October 18, 2023
feeling well
pain improving
no fevers overnight
Objective Data
-
Vital Signs:
Vital Signs
Temp Pulse Resp BP Pulse Ox
98.1 F 80 16 148/67 95
10/18/23 07:30 10/18/23 07:30 10/18/23 07:30 10/18/23 07:30 10/18/23 07:30
I&O
10/17/23 10/18/23 10/19/23
06:59 06:59 06:59
Intake Total 980 / 980 840 / 840
Balance 980 / 980 840 / 840
Review of Systems
-
History Source: Patient
All other systems: Reviewed and negative
Data Reviewed
-
Diagnostic Radiology: Report Reviewed by me
Labs: Labs Reviewed by me
--- NOTE | 2023-10-18 10:24 | W.DS.TRANS ---
DC Summary - [facility] [employer]
-
Discharge Instructions:
Discharge Diagnosis/Procedures Drug Reaction to Bactrim; Serum Sickness-Like
Illness
Diet Diabetic, Carb Controlled
Activity As tolerated
Driving Restrictions As prior to admission
Bathing Restrictions None
Instructions:
Stand-Alone Forms:
Changes to Home Medications: Yes
Discharge Medications:
DC Medications w/original date entered in [facility] | [employer]
Lactobac no.2-Bifidobac no.1-S. thermo 112.5 billion cell capsule (Visbiome) 1 cap PO DAILY probiotic 10/15/23
ascorbic acid (vitamin C) 500 mg tablet (Vitamin C) 500 mg PO DAILY Supplement 10/15/23
biotin 5 mg tablet 5 mg PO DAILY Supplement 10/15/23
bupropion HCl 150 mg tablet,12 hr sustained-release 150 mg PO BID Depression 10/15/23
calcium carbonate (Calcium 600) 600 mg PO DAILY Supplement 10/15/23
cinnamon bark 500 mg capsule (Cinnamon) 500 mg PO DAILY Supplement 10/15/23
cranberry fruit 450 mg tablet (cranberry) 450 mg PO DAILY Supplement 10/15/23
cyanocobalamin (vitamin B-12) 1,000 mcg tablet 1,000 mcg PO DAILY Supplement 10/15/23
dapagliflozin propanediol 5 mg tablet (Farxiga) 5 mg PO DAILY Diabetes 10/15/23
ferrous sulfate 325 mg (65 mg iron) tablet 325 mg PO Q48H Supplement 10/15/23
ibuprofen 200 mg tablet 400 mg PO Q6HPRN PRN mild pain 10/15/23
icosapent ethyl 1 gram capsule 1 g PO BID High Cholesterol 10/15/23
levothyroxine 137 mcg tablet (Synthroid) 137 mcg PO DAILY Thyroid 10/15/23
liothyronine 5 mcg tablet 5 mcg PO DAILY Thyroid 10/15/23
magnesium oxide 400 mg (241.3 mg magnesium) tablet 400 mg PO DAILY Electrolyte Repletion 10/15/23
metformin 1,000 mg tablet 1,000 mg PO BID Diabetes 10/15/23
therapeutic multivitamin 1 tab PO DAILY Supplement 10/15/23
tretinoin 0.05 % topical gel 1 applic topical HS face 10/15/23
turmeric 400 mg capsule 400 mg PO DAILY Supplement 10/15/23
vitamin B complex 1 tab PO DAILY Supplement 10/15/23
zinc sulfate 50 mg zinc (220 mg) tablet 50 mg PO DAILY Supplement 10/15/23
cephalexin 500 mg capsule 500 mg PO QID Infection #0 caps 10/18/23
prednisone 10 mg tablet 10 mg PO DAILY #14 tabs 10/18/23
Home Medication Changes
STOP BACTRIM (It is now an allergy)
Take Keflex 500mg once every 6 hours through 10/24/23. (You have enough from last prescription, if not please contact your PCP for a prescription for a few more pills)
Prednisone course:
Take 4 tabs (40mg) x 2 days then 2 tabs (20mg) x 2 days then 1 tab (10mg) x 2 days then stop.
Pending Results: No
--- NOTE | 2023-10-18 13:31 | W.DCSUMMARY ---
Discharge Summary
Discharge Data
Date of Admission: 10/15/23
Date of Discharge: 10/18/23
-
Pending Results: No
Hospital Course
Discharging Physician : Dr. Ynes Sharma
Disposition : Home
Primary care physician : Dr. Chace Velarde
Principal Discharge diagnosis : Bactrim Drug Reaction, possible serum sickness like syndrome
Hospital Course :
Ms. Sharlene Kemp is a 58 yo woman with hx DM, thyroid cancer, epilepsy, Erbs palsy with loss of muscle and sensory function RUE with recent right elbow swelling and redness s/p [facility] visit 10/12 where prescribed Keflex and Bactrim
presents to the ER with diffuse joint pains, fevers and numbness/tingling extremities. Triage vitals significant for hypertension. Labs with WBC 8. She was started on IV antibiotics and admitted to medicine with ID and Orthopedics consulting.
Ortho performed aspirate of right elbow swelling and blood without pus was expressed. Her swelling continued to improved on IV antibiotics (narrowed to IV Cefazolin per ID), therefore no need for surgical intervention. She is discharged to
complete a course of oral Keflex.
Regarding rash and diffuse joint pains, concern raised from serum sickness like reaction from Bactrim. Bactrim was not given on admission. She was started on steroid. Symptoms improved over the next 48-72 hours. She is discharged on a steroid
taper over the next week and will follow up closely with Rheumatology. Bactrim added to allergy list.
Time spent on discharge was 35 minutes.
Important imaging findings :
Elbow X-Ray 10/15/23
IMPRESSION:
1. Severe diffuse soft tissue swelling and subcutaneous edema suggesting SEVERE CELLULITIS.
2. No radiographic evidence for acute osteomyelitis or septic arthritis.
Left Ankle X-Ray 10/16/23
IMPRESSION:
Normal.
Right Ankle X-Ray 10/16/23
IMPRESSION:
No acute abnormalities.
Mild degenerative spurring at the dorsal margin of the talonavicular joint
Procedure findings :
Discharge Plan
-
Patient Disposition: Home (Routine Discharge)
Discharge Diagnosis/Procedures: Drug Reaction to Bactrim; Serum Sickness-Like Illness
Diet: Diabetic, Carb Controlled
Activity: As tolerated
Driving Restrictions: As prior to admission
Bathing Restrictions: None
Referrals:
Chace Velarde DO [Family Provider] - in less than 1 week
Rich Campbell MD [Active] - in one to two weeks
Additional Discharge Medication Instructions: STOP BACTRIM (It is now an allergy)
Take Keflex 500mg once every 6 hours through 10/24/23. (You have enough from last prescription, if not please contact your PCP for a prescription for a few more pills)
Prednisone course:
Take 4 tabs (40mg) x 2 days then 2 tabs (20mg) x 2 days then 1 tab (10mg) x 2 days then stop.
When you call Dr. Campbell's office please let them know that you were just hospitalized and Dr. Campbell was a senior clinical consultant and would like to see you in 1-2 weeks.
Prescriptions:
New
prednisone 10 mg tablet
10 mg PO DAILY Qty: 14 0RF
Rx Instructions:
Take 40mg (4 tabs)x2 days; 20mg (2 tabs)x2 days then 10mg (1 tab)x2 days
Continued
bupropion HCl 150 mg Tablet Sustained-Release 12 Hr
150 mg PO BID
levothyroxine [Synthroid] 137 mcg Tablet
137 mcg PO DAILY
cyanocobalamin (vitamin B-12) 1,000 mcg Tablet
1,000 mcg PO DAILY
therapeutic multivitamin Tablet
1 tab PO DAILY
liothyronine 5 mcg Tablet
5 mcg PO DAILY
zinc sulfate 50 mg zinc (220 mg) Tablet
50 mg PO DAILY
calcium carbonate [Calcium 600] 600 mg calcium (1,500 mg) Tablet
600 mg PO DAILY
magnesium oxide 400 mg (241.3 mg magnesium) Tablet
400 mg PO DAILY
ascorbic acid (vitamin C) [Vitamin C] 500 mg Tablet
500 mg PO DAILY
ferrous sulfate 325 mg (65 mg iron) Tablet
325 mg PO Q48H
metformin 1,000 mg Tablet
1,000 mg PO BID
ibuprofen 200 mg Tablet
400 mg PO Q6HPRN PRN (Reason: mild pain)
vitamin B complex Tablet
1 tab PO DAILY
cinnamon bark [Cinnamon] 500 mg Capsule
500 mg PO DAILY
biotin 5 mg Tablet
5 mg PO DAILY
Visbiome 112.5 billion cell Capsule
1 cap PO DAILY
tretinoin 0.05 % Gel
1 applic TOPICAL HS
cranberry 450 mg Tablet
450 mg PO DAILY
icosapent ethyl 1 gram Capsule
1 g PO BID
dapagliflozin propanediol [Farxiga] 5 mg Tablet
5 mg PO DAILY
turmeric 400 mg Capsule
400 mg PO DAILY
cephalexin 500 mg Capsule
500 mg PO QID Qty: 0 0RF
Rx Instructions:
complete course through 10/24/23
Discontinued
sulfamethoxazole-trimethoprim [Bactrim DS] 800-160 mg Tablet
1 tab PO BID
Discharge Orders:
Discharge Patient (As Directed); Ordered 10/18/23
Ordered By: Ynes Sharma
Discharge Date and Time
Discharge Date/Time: 10/18/23 11:05
Print Language: BULGARIAN
== END 2023-10-18 11:05 | disposition home or self-care (01) | DRG 603 ==
LOC: 3 WEST ACU 14:37
PROVIDERS: Registered Nurse; ADMITTING PHYSICIAN Family Medicine; ATTENDING PHYSICIAN Student in an Organized Health Care Education/Training Program; CONSULT PHYSICIAN Internal Medicine Infectious Disease; CONSULT PHYSICIAN Orthopaedic Surgery; EMERGENCY PHYSICIAN Emergency Medicine; FAMILY PHYSICIAN Student in an Organized Health Care Education/Training Program
DX: L03.113 Cellulitis of right upper limb (principal); T80.69XA Other serum reaction due to other serum, initial encounter; P14.0 Erb's paralysis due to birth injury; M70.21 Olecranon bursitis, right elbow; L27.1 Localized skin eruption due to drugs and medicaments taken internally; I10 Essential (primary) hypertension; E11.9 Type 2 diabetes mellitus without complications; E89.0 Postprocedural hypothyroidism; D50.9 Iron deficiency anemia, unspecified; Z85.850 Personal history of malignant neoplasm of thyroid; Z79.84 Long term (current) use of oral hypoglycemic drugs
CPT/HCPCS: 73080; 73600; 80048; 80053; 81003; 81015; 82962; 83036; 84484; 85025; 85027; 85652; 86140; 86430; 86747; 86803; 87040; 93005; 96365; 96375; 99285